=== PATIENT | female | born 1940 | race Caucasian/White ===

== ENCOUNTER 2018-01-24 13:39 | Emergency (ER) | payer MEDICARE, MEDICAID ==
[~2018-01-24] VITALS: Ht 162.6 cm; Wt 73.0 kg
[~2018-01-24 13:39] MED LIST: AMIO200T PO; APIX5TAB PO; CLON0.1T PO; FLINT2 CHEW; FURO20TA PO; LEVA750T9 PO; LISI10TA3 PO; OMEP20TA93 PO; PRED10PA PO; SPIR25TA PO
[2018-01-24 13:43] VITALS: BP 229/94; PULSE 65; RESP 18; TEMP 98.5; O2SAT 99
[2018-01-24 13:49] VITALS: BP 229/94; PULSE 68; RESP 18; TEMP 98.5; O2SAT 99
--- NOTE | 2018-01-24 13:58 | PD ---
HPI Chief Complaint: Fall Time Seen by Provider: 13:56 Travel History International Travel<30 days: No Contact w/Intl Traveler<30days: No Traveled to known affect area: No History of Present Illness HPI Patient was a fall alert WHILE IN THE [facility] waiting room AT [facility] ([facility] – [place] Patient inadvertently tripped over her grandkids who was running across and tripped her accidentally. Patient fell face first attempted to place her hands up but unfortunately No known drug allergy Past medical history the patient is on Eliquis, hypertension, COPD, cholecystectomy, diabetes, CVA PFSH Past Medical History Hx Anticoagulant Therapy: Yes (ELIQUIS 5MG BID, LAST DOSE ON 08/17/17) Cerebrovascular Accident: Yes Diabetes: Yes Patient Takes Glucophage: No Diminished Hearing: No GERD: Yes Hypertension: Yes Respiratory: Yes (ASTHMA, COPD) : 7 Para: 7 Past Surgical History Cholecystectomy: Yes Other Surgery: Yes (HERNIA REPAIR) Social History Alcohol Use: No Tobacco Use: No Substance Use: No Allergies-Medications (Allergen,Severity, Reaction): Coded Allergies: No Known Allergies (Verified Allergy, Unknown, 08/18/17) Reported Meds & Prescriptions Reported Meds & Active Scripts Active Reported Omeprazole 20 Mg Tab 20 Mg PO DAILY Lisinopril 10 Mg Tab 10 Mg PO DAILY Clonidine (Clonidine HCl) 0.1 Mg Tab 0.1 Mg PO DAILY PRN Furosemide 20 Mg Tab 20 Mg PO DAILY Data Data Last Documented VS Vital Signs Date Time Temp Pulse Resp B/P (MAP) Pulse Ox O2 Delivery O2 Flow Rate FiO2 01/24/18 13:49 67 18 99 Room Air 01/24/18 13:49 98.5 229/94 (139) Orders Orders Basic Metabolic Panel (Bmp) (01/24/18 14:09) Complete Blood Count With Diff (01/24/18 14:09) Ct Brain W/O Iv Contrast(Rout) (01/24/18 14:09) Ct Facial Bones W/O Iv Cont (01/24/18 14:09) Apply Cervical Collar (01/24/18 14:09) Ecg Monitoring (01/24/18 14:09) Ice/Cold Pack (01/24/18 14:09) Iv Access Insert/Monitor (01/24/18 14:09) Morphine Inj (Morphine Inj) (01/24/18 14:15) Sodium Chloride 0.9% Flush (Ns Flush) (01/24/18 14:15) Ct Abd/Pel W/O Iv Contrast (01/24/18 14:09) Ct Cerv Spine W/O Contrast (01/24/18 14:09) Labs Laboratory Tests Test 01/24/18 14:23 White Blood Count 7.3 TH/MM3 Red Blood Count 4.70 MIL/MM3 Hemoglobin 12.8 GM/DL Hematocrit 38.9 % Mean Corpuscular Volume 82.7 FL Mean Corpuscular Hemoglobin 27.1 PG Mean Corpuscular Hemoglobin Concent 32.8 % Red Cell Distribution Width 13.6 % Platelet Count 189 TH/MM3 Mean Platelet Volume 10.3 FL Neutrophils (%) (Auto) 64.7 % Lymphocytes (%) (Auto) 19.4 % Monocytes (%) (Auto) 10.1 % Eosinophils (%) (Auto) 4.8 % Basophils (%) (Auto) 1.0 % Neutrophils # (Auto) 4.7 TH/MM3 Lymphocytes # (Auto) 1.4 TH/MM3 Monocytes # (Auto) 0.7 TH/MM3 Eosinophils # (Auto) 0.4 TH/MM3 Basophils # (Auto) 0.1 TH/MM3 CBC Comment DIFF FINAL Differential Comment Blood Urea Nitrogen 17 MG/DL Creatinine 1.09 MG/DL Random Glucose 176 MG/DL Calcium Level 8.9 MG/DL Sodium Level 139 MEQ/L Potassium Level 4.6 MEQ/L Chloride Level 104 MEQ/L Carbon Dioxide Level 27.8 MEQ/L Anion Gap 7 MEQ/L Estimat Glomerular Filtration Rate 49 ML[facility] Medical Decision Making Medical Screen Exam Complete: Yes Emergency Medical Condition: Yes Medical Record Reviewed: Yes Differential Diagnosis Intracranial hemorrhage versus skull fracture versus Narrative Course CBC shows no leukocytosis, no anemia, normal platelet count, no left shift Electrolytes are all within normal limits, with the exception of random glucose of [address] read by radiologist as no acute intracranial abnormalities. Focal encephalomalacia in both frontal lobes which could be related to prior trauma or infarcts CT maxillofacial read by radiologist as mild frontal scalp swelling no acute fracture CT C-spine read by radiologist as no acute findings mild to moderate canal stenosis at C4-C5 CT abdomen pelvis read by radiologist as negative for acute traumatic injury within the abdomen and pelvis. Previous left-sided pubic rami fractures. Colonic diverticulosis. Previous cholecystectomy. Diagnosis Primary Impression: Scalp contusion Additional Impression: Acute neck sprain Qualified Codes: S13.9XXA - Sprain of joints and ligaments of unspecified parts of neck, initial encounter Patient Instructions: Cervical Neck Strain Exercises (GEN), Cervical Spinal Stenosis (ED), Cervical Sprain (ED), Contusion in Adults (DC), General Instructions, Scalp Contusion in Adults (ED) Scripts Codeine-Acetaminophen (Codeine-Acetaminophen) 30-300 mg Tab 1 TAB PO Q4H Y for PAIN, #12 TAB 0 Refills Prov: Lc Lauren MD 01/24/18 Cyclobenzaprine (Flexeril) 10 Mg Tab 10 MG PO TID for Muscle Spasm for 5 Days, #15 TAB 0 Refills Prov: Lc Lauren MD 01/24/18 Disposition: 01 DISCHARGE HOME Condition: Stable Lc Lauren MD Jan 24, 2018 13:58
[2018-01-24] MEDS ORDERED: MORPHINE SULFATE 4 MG/ML INJ IV PUSH ONE (14:15)
[2018-01-24] MEDS ORDERED: SODIUM CHLORIDE 0.9% FLUSH 10 ML FLUSH IVF PRN (14:15)
[2018-01-24 15:03] LABS: AUTOMATED NEUTROPHIL # 4.7 TH/MM3 (1.8-7.7); BASOPHIL # 0.1 TH/MM3 (0-0.2); EOSINOPHIL # 0.4 TH/MM3 (0-0.4); EOSINOPHIL % 4.8 % (0.0-4.0); HEMATOCRIT 38.9 % (35.0-46.0); HEMOGLOBIN 12.8 GM/DL (11.6-15.3); LYMPH % 19.4 % (9.0-44.0); LYMPHOCYTE # 1.4 TH/MM3 (1.0-4.8); MEAN CELL VOLUME 82.7 FL (80.0-100.0); MEAN CORPUSCULAR HEMOGLOBIN 27.1 PG (27.0-34.0); MEAN CORPUSCULAR HGB CONC 32.8 % (32.0-36.0); MEAN PLATELET VOLUME 10.3 FL (7.0-11.0); MONO % 10.1 % (0.0-8.0); MONOCYTE # 0.7 TH/MM3 (0-0.9); NEUT % 64.7 % (16.0-70.0); PLATELET COUNT 189 TH/MM3 (150-450); RED CELL DISTRIBUTION WIDTH 13.6 % (11.6-17.2); WHITE BLOOD COUNT 7.3 TH/MM3 (4.0-11.0)
--- NOTE | 2018-01-24 15:11 | RADRPT ---
EXAM DATE: 01/24/2018 3:00 PM EDT AGE/SEX: 77 years / Female INDICATIONS: Trauma, fall today. CLINICAL DATA: This is the patient's initial encounter. Patient reports that signs and symptoms have been present for 1 day and indicates a pain score of 5/10. MEDICAL/SURGICAL HISTORY: Stroke. Diabetes. Cholecystectomy. RADIATION DOSE: 68.62 CTDI (mGy) COMPARISON: No prior exams available for comparison. TECHNIQUE: CT of the head without contrast. Using automated exposure control and adjustment of the mA and/or kV according to patient size, radiation dose was kept as low as reasonably achievable to ob tain optimal diagnostic quality images. FINDINGS: Cerebrum: There is focal encephalomalacia in the frontal lobes bilaterally which could be related to prior infarct or trauma. No acute intracranial hemorrhage or mass effect. Frontal scalp swelling. Posterior Fossa: The cerebellum and brainstem are intact. The 4th ventricle is midline. The cerebe llopontine angle is unremarkable. Extracranial: The visualized portion of the orbits is intact. Skull: The calvaria is intact. No evidence of skull fracture. CONCLUSION: 1. No acute intracranial abnormalities. Focal encephalomalacia in both frontal lobes which could be related to prior trauma or infarct. Electronically signed by: Casey Gaines MD 01/24/2018 3:10 PM EDT
--- NOTE | 2018-01-24 15:15 | RADRPT ---
EXAM DATE: 01/24/2018 3:08 PM EDT AGE/SEX: 77 years / Female INDICATIONS: Trauma, fall today. CLINICAL DATA: This is the patient's initial encounter. Patient reports that signs and symptoms have been present for 1 day and indicates a pain score of 5/10. MEDICAL/SURGICAL HISTORY: Stroke. Gastroesophageal reflux disease. Diabetes. Cholecystectomy. hernia repair RADIATION DOSE: 24.30 CTDI (mGy) COMPARISON: No prior exams available for comparison. TECHNIQUE: Contiguous axial images were obtained using helical multirow detector technique. The vol umetric data was post-processed with multiplanar reconstruction in oblique axial, sagittal, and coron al planes. Using automated exposure control and adjustment of the mA and/or kV according to patient s ize, radiation dose was kept as low as reasonably achievable to obtain optimal diagnostic quality madonna ges. FINDINGS: No acute fracture or spondylolisthesis. Broad-based disc osteophyte complex at C4-5 with mild to mode rate AP canal stenosis and bilateral foraminal encroachment. No other significant canal stenosis. No prevertebral soft tissue swelling. CONCLUSION: 1. No acute findings. Mild to moderate canal stenosis at C4-5. Electronically signed by: Casey Gaines MD 01/24/2018 3:14 PM EDT
[2018-01-24 15:17] LABS: BICARBONATE 27.8 MEQ/L (21.0-32.0); CALCIUM 8.9 MG/DL (8.5-10.1); CREATININE 1.09 MG/DL (0.50-1.00)
--- NOTE | 2018-01-24 15:27 | RADRPT ---
EXAM DATE: 01/24/2018 3:15 PM EDT AGE/SEX: 77 years / Female INDICATIONS: Trauma, fall today. CLINICAL DATA: This is the patient's initial encounter. Patient reports that signs and symptoms have been present for 1 day and indicates a pain score of 7/10. MEDICAL/SURGICAL HISTORY: Stroke. Diabetes. Cholecystectomy. RADIATION DOSE: 64.34 CTDI (mGy) COMPARISON: No prior exams available for comparison. TECHNIQUE: Contiguous images in the axial and coronal planes were obtained using helical multirow de tector technique. Using automated exposure control and adjustment of the mA and/or kV according to p atient size, radiation dose was kept as low as reasonably achievable to obtain optimal diagnostic jojo lity images. FINDINGS: There is mild frontal scalp swelling. No acute fracture. Mucosal thickening present in the paranasal sinuses. CONCLUSION: 1. Mild frontal scalp swelling. No acute fracture. Electronically signed by: Casey Gaines MD 01/24/2018 3:26 PM EDT
--- NOTE | 2018-01-24 15:34 | RADRPT ---
EXAM DATE: 01/24/2018 3:13 PM EDT AGE/SEX: 77 years / Female INDICATIONS: Trauma, fall today. CLINICAL DATA: This is the patient's initial encounter. Patient reports that signs and symptoms have been present for 1 day and indicates a pain score of 5/10. MEDICAL/SURGICAL HISTORY: Stroke. Diabetes. Gastroesophageal reflux disease. Cholecystectomy. hernia repair RADIATION DOSE: 14.29 CTDI (mGy) COMPARISON: No prior exams available for comparison. TECHNIQUE: Multiple contiguous axial images were obtained through the abdomen. Images were obtained using multiple row detector helical technique. Using dose reduction techniques, radiation dose was ke pt as low as reasonably achievable to obtain optimal diagnostic quality images. FINDINGS: Linear scarring or atelectasis in the lingula and right middle lobe. No acute findings in the liver, spleen, adrenals or pancreas. Tiny nonobstructing 3 mm left renal giuliana culus. Small cyst upper pole left kidney. No free fluid. No bowel obstruction. There is colonic diverticulosis without evidence for diverticuli tis. Bladder is distended and there is some air in the bladder of uncertain etiology. Possibly related to recent instrumentation. Remote healed left pubic rami fractures. No definite acute fracture identifie d. CONCLUSION: 1. Negative for acute traumatic injury within the abdomen and pelvis. Previous left-sided pubic rami fractures. Colonic diverticulosis. Previous cholecystectomy. Electronically signed by: Casey Gaines MD 01/24/2018 3:32 PM EDT
[2018-01-24] MEDS ORDERED: CYCL10TA PO (15:50)
[2018-01-24] MEDS ORDERED: CODE30TA2 PO (15:50)
[2018-01-24 16:35] VITALS: BP 224/100; PULSE 59; RESP 18; O2SAT 98
== END 2018-01-24 16:36 | disposition home or self-care (01) ==
LOC: NEPE 13:39
DX: S00.03XA Contusion of scalp, initial encounter (principal); S13.9XXA Sprain of joints and ligaments of unspecified parts of neck, initial encounter; W18.09XA Striking against other object with subsequent fall, initial encounter; Y92.238 Other place in hospital as the place of occurrence of the external cause; M48.02 Spinal stenosis, cervical region; K57.30 Diverticulosis of large intestine without perforation or abscess without bleeding; E11.9 Type 2 diabetes mellitus without complications; I10 Essential (primary) hypertension; J44.9 Chronic obstructive pulmonary disease, unspecified; Z86.73 Personal history of transient ischemic attack (TIA), and cerebral infarction without residual deficits; Z79.899 Other long term (current) drug therapy; Z90.49 Acquired absence of other specified parts of digestive tract
CPT/HCPCS: 70450; 70486; 72125; 74176; 80048; 85025; 96374; 99284; J2270